=== PATIENT | female | born 1945 | race Two or more races ===

== ENCOUNTER 2023-10-24 11:40 | Inpatient (IN) | payer MEDICARE, OTHER ==
[~2023-10-24] VITALS: Ht 154.9 cm; Wt 65.8 kg
[2023-10-24] MEDS ORDERED: AZIT250T13 PO (15:27)
[2023-10-24] MEDS ORDERED: ASPI-1169 PO (15:27)
[2023-10-24] MEDS ORDERED: POVI1MED BNOSTRILS (15:27)
[2023-10-24] MEDS ORDERED: BENZ-13 PO (15:27)
[2023-10-24] MEDS ORDERED: SODI480S2 TOP (15:27)
[2023-10-24] MEDS ORDERED: ACET-868 PO (15:27)
[2023-10-24] MEDS ORDERED: DOCU-141 PO (15:27)
[2023-10-24] MEDS ORDERED: CLON0.1T PO (15:27)
[2023-10-24] MEDS ORDERED: POLY17PO4 PO (15:27)
[2023-10-24] MEDS ORDERED: BISA10SU11 RC (15:27)
[2023-10-24] MEDS ORDERED: VALS40TA4 PO (15:28)
[2023-10-24] MEDS ORDERED: MULT-447 PO (15:28)
[2023-10-24] MEDS ORDERED: ASCO-352 PO (15:28)
[2023-10-24] MEDS ORDERED: MAGN400O6 PO (15:28)
[2023-10-24] MEDS ORDERED: PANT40TA2 PO (15:28)
[2023-10-24] MEDS ORDERED: NUT.237L31 PO (15:28)
[2023-10-24] MEDS ORDERED: METO25TA3 PO (15:28)
[2023-10-24] MEDS ORDERED: METF-441 PO (15:28)
[2023-10-24] MEDS ORDERED: ESCI10TA PO (15:28)
[2023-10-24] MEDS ORDERED: NA P133E RC (15:28)
[2023-10-24] MEDS ORDERED: METO-295 PO (15:28)
[2023-10-24] MEDS ORDERED: GUAI100S9 PO (15:28)
[2023-10-24] MEDS ORDERED: DEXT37.54 PO (15:28)
[2023-10-24 15:41] VITALS: BP 141/63; TEMP 95.9; O2SAT 92
[2023-10-24] MEDS ORDERED: DEXTROSE 50%-WATER 50 ML DISP.SYRIN IV PRN (17:00)
[2023-10-24] MEDS: BLOOD SUGAR DIAGNOSTIC 1 EACH STRIP IN SCH ×2 (17:02→22:51)
[2023-10-24] MEDS ORDERED: MAG HYDROX/AL HYDROX/SIMETH 30 ML UDC PO PRN (19:00)
[2023-10-24] MEDS ORDERED: BISACODYL SUPP (10 MG) 10 MG/SUPP.RECT SUPP.RECT RC PRN (19:00)
[2023-10-24] MEDS ORDERED: BENZONATATE 100 MG CAPSULE PO PRN (19:00)
[2023-10-24] MEDS ORDERED: DAKINS HALF STRENGTH (0.25%) 480 ML BOTTLE TOP PRN (19:00)
[2023-10-24] MEDS ORDERED: NA PHOS,M-B/NA PHOS,DI-BA 1 EA ENEMA RC PRN (19:00)
[2023-10-24] MEDS ORDERED: ACETAMINOPHEN 325 MG TABLET PO PRN ×2 (19:00)
[2023-10-24] MEDS ORDERED: ONDANSETRON HCL/PF 4 MG/2 ML VIAL IVP PRN (19:00)
[2023-10-24] MEDS ORDERED: ZOLPIDEM TARTRATE 5 MG TABLET PO PRN (19:00)
[2023-10-24] MEDS ORDERED: Z GUARD REMEDY 4 OZ OINT TP PRN (19:00)
[2023-10-24] MEDS ORDERED: GUAIFENESIN 300 MG/15 ML UDC PO PRN (19:00)
[2023-10-24] MEDS ORDERED: POLYETHYLENE GLYCOL 3350 17 GM POWD.PACK PO PRN (19:00)
[2023-10-24] MEDS ORDERED: MAGNESIUM HYDROXIDE 30 ML UDC PO PRN ×2 (19:00)
[2023-10-24 20:00] VITALS: BP 124/87; TEMP 97.6; O2SAT 91
[2023-10-24 20:01] LABS: BASOPHILS # (AUTO) 0.1 K/uL (0.0-0.2); BASOPHILS % (AUTO) 0.4 % (0.0-2.0); EOSINOPHILS # (AUTO) 0.3 K/uL (0.0-0.7); EOSINOPHILS % (AUTO) 2.1 % (0.0-6.0); HEMATOCRIT 31 % (33-45); HEMOGLOBIN 9.4 g/dL (11.5-14.8); LYMPHOCYTES # (AUTO) 1.5 K/uL (0.8-4.8); LYMPHOCYTES % (AUTO) 9.5 % (20.0-44.0); MEAN CORPUSCULAR HEMOGLOBIN 25 PG (26.0-33.0); MEAN CORPUSCULAR HGB CONC 31 g/dl (31.0-36.0); MEAN CORPUSCULAR VOLUME 83 fL (82-100); MONOCYTES # (AUTO) 0.5 K/uL (0.1-1.30); MONOCYTES % (AUTO) 3.4 % (2.0-12.0); NEUTROPHILS % (AUTO) 84.6 % (43.0-81.0); PLATELET COUNT (AUTO) 444 K/uL (150-450); RED BLOOD CELL COUNT(AUTO) 3.72 MIL/uL (4.0-5.2); RED CELL DISTRIBUTION WIDTH 15.3 % (11.5-15.0); WHITE BLOOD COUNT (AUTO) 15.4 K/uL (4.3-11.0)
[2023-10-24 20:16] LABS: AMYLASE 225 U/L (25-115); CALCIUM, SERUM 8.9 mg/dL (8.5-10.1); CARBON DIOXIDE 24 mmol/L (21-32); CHLORIDE 118 mmol/L (98-107); CREATININE 1.9 mg/dL (0.6-1.3); GLUCOSE 208 mg/dL (74-106); IRON, SERUM 13 ug/dl (50-175); LIPASE 41 U/L (16-77); MAGNESIUM 2.5 mg/dL (1.8-2.4); PHOSPHORUS 2.8 mg/dL (2.5-4.9); POTASSIUM 3.7 mmol/L (3.5-5.1); SODIUM SERUM 153 mmol/L (136-145); TOTAL IRON BINDING CAPACITY 170 ug/dl (250-450); UREA NITROGEN, BLOOD 56 mg/dL (7-18)
[2023-10-24 20:20] LABS: LACTIC ACID 0.8 mmol/L (0.4-2.0)
[2023-10-24 20:30] LABS: CHOLESTEROL 129 mg/dL (<200); HDL CHOLESTEROL 39 mg/dL (40-60); LDL 72 mg/dL (0-99); TRIGLYCERIDES 109 mg/dL (30-150)
[2023-10-24 20:31] LABS: THYROID STIMULATING HORMONE 0.419 uIU/mL (0.358-3.74)
[2023-10-24] MEDS: CEFTRIAXONE 2 G in IV D5W 100 ML IV SCH (20:59)
[2023-10-24] MEDS: IV NS 0.9% 1,000 ML IV PRN (20:59)
[2023-10-24] MEDS: *INSULIN REGULAR(HUMULIN R)HUM 100 UNIT/ML VIAL SQ PRN (22:54)
[2023-10-25] VITALS: BP 126/63; TEMP 97.6; O2SAT 100
[2023-10-25] MEDS: DAKINS HALF STRENGTH (0.25%) 480 ML BOTTLE TOP SCH ×2 (02:21→09:42)
[2023-10-25 04:00] VITALS: BP 146/79; TEMP 97.9; O2SAT 100
[2023-10-25 07:29] LABS: APPEARANCE,URINE TURBID (CLEAR); BILIRUBIN,URINE NEGATIVE (NEGATIVE); BLOOD, URINE 2+ Ery/uL (NEGATIVE); COLOR,URINE ORANGE (YELLOW); KETONES,URINE TRACE mg/dL (NEGATIVE); LEUKOCYTE ESTERASE ,URINE 3+ (NEGATIVE); NITRITE, URINE POSITIVE (NEGATIVE); PH,URINE 5.5 (5.0-8.0); PROTEIN,URINE 1+ mg/dl (NEGATIVE); UGLUCOSE NEGATIVE (NEGATIVE); UROBILINOGEN,URINE 0.2 EU/dL (0.2)
[2023-10-25 07:56] LABS: ADD URINE CULTURE YES; BACTERIA,URINE Moderate /HPF (None Seen); SQUAMOUS EPITHELIAL CELL,UR Rare /HPF (None Seen); WBC,URINE 21-50 /HPF (0-3)
[2023-10-25 07:58] LABS: BASOPHILS # (AUTO) 0.1 K/uL (0.0-0.2); BASOPHILS % (AUTO) 0.5 % (0.0-2.0); CALCIUM, SERUM 8.3 mg/dL (8.5-10.1); CARBON DIOXIDE 21 mmol/L (21-32); CHLORIDE 118 mmol/L (98-107); CREATININE 1.8 mg/dL (0.6-1.3); EOSINOPHILS # (AUTO) 0.6 K/uL (0.0-0.7); EOSINOPHILS % (AUTO) 3.3 % (0.0-6.0); GLUCOSE 232 mg/dL (74-106); HEMATOCRIT 34 % (33-45); HEMOGLOBIN 10.6 g/dL (11.5-14.8); LYMPHOCYTES # (AUTO) 1.8 K/uL (0.8-4.8); LYMPHOCYTES % (AUTO) 10.2 % (20.0-44.0); MAGNESIUM 2.5 mg/dL (1.8-2.4); MEAN CORPUSCULAR HEMOGLOBIN 26 PG (26.0-33.0); MEAN CORPUSCULAR HGB CONC 31 g/dl (31.0-36.0); MEAN CORPUSCULAR VOLUME 83 fL (82-100); MONOCYTES # (AUTO) 0.7 K/uL (0.1-1.30); MONOCYTES % (AUTO) 3.7 % (2.0-12.0); NEUTROPHILS # (AUTO) 14.6 K/uL (1.8-8.9); NEUTROPHILS % (AUTO) 82.3 % (43.0-81.0); POTASSIUM 4.2 mmol/L (3.5-5.1); RED BLOOD CELL COUNT(AUTO) 4.08 MIL/uL (4.0-5.2); RED CELL DISTRIBUTION WIDTH 15.1 % (11.5-15.0); SODIUM SERUM 151 mmol/L (136-145); UREA NITROGEN, BLOOD 49 mg/dL (7-18); WHITE BLOOD COUNT (AUTO) 17.7 K/uL (4.3-11.0)
[2023-10-25 08:00] VITALS: BP_SYST 127; BP_SYST 144; BP_DIAS 62; BP_DIAS 83; TEMP 98; TEMP 98.2; O2SAT 100
[2023-10-25 08:15] LABS: PLATELET COUNT (AUTO) 487 K/uL (150-450)
[2023-10-25] MEDS ORDERED: GLUCERNA 1.5 1,000 ML BOTTLE PEG SCH (09:00)
[2023-10-25] MEDS ORDERED: POVIDONE IODINE BNOSTRILS SCH (09:00)
[2023-10-25] MEDS: MULTIVIT W/MINERALS 1 TAB TABLET PO SCH (09:37)
[2023-10-25] MEDS: DOCUSATE SODIUM 100 MG CAPSULE PO SCH ×2 (09:39→18:06)
[2023-10-25] MEDS: AZITHROMYCIN 250 MG TABLET PO SCH (09:39)
[2023-10-25] MEDS: LOSARTAN POTASSIUM 25 MG TABLET PO SCH (09:39)
[2023-10-25] MEDS: METOCLOPRAMIDE HCL 10 MG TABLET PO SCH ×2 (09:40→18:06)
[2023-10-25] MEDS: ASCORBIC ACID 500 MG TABLET PO SCH (09:41)
[2023-10-25] MEDS: ASPIRIN 81 MG TAB.CHEW PO SCH (09:41)
[2023-10-25] MEDS: METOPROLOL SUCCINATE 25 MG TAB.SR.24H PO SCH (09:41)
[2023-10-25] MEDS: ESCITALOPRAM OXALATE (10 MG) 10 MG TABLET PO SCH (09:41)
[2023-10-25] MEDS: BLOOD SUGAR DIAGNOSTIC 1 EACH STRIP IN SCH ×4 (09:42→22:08)
[2023-10-25] MEDS: PANTOPRAZOLE 40 MG TABLET.DR PO SCH (09:47)
[2023-10-25] MEDS: INSULIN REGULAR, HUMAN 100 UNIT/ML 3 ML VIAL SQ PRN ×2 (09:53→12:27)
[2023-10-25 11:42] LABS: ANISOCYTOSIS 1+; BAND % (MANUAL) 2 % (0.0-5.0); BASOPHILS % (MANUAL) 0 % (0.0-2.0); EOSINOPHILS % (MANUAL) 0 % (0-4); LYMPHOCYTES % (MANUAL) 14 % (16-48); MONOCYTES % (MANUAL) 4 % (0-11.0); NEUTROPHILS % (MANUAL) 80 (42-76); PLATELET ESTIMATE ADEQUATE; STOMATOCYTES 1+
[2023-10-25 12:00] VITALS: BP 127/62; TEMP 98; O2SAT 100
[2023-10-25] MEDS: GLUCERNA SHAKE 237 ML CAN PO SCH ×2 (12:25→17:00)
[2023-10-25] MEDS: IV NS 0.9% 1,000 ML IV PRN (12:31)
[2023-10-25 16:00] VITALS: BP 102/50; TEMP 98; O2SAT 100
[2023-10-25 20:00] VITALS: BP 142/68; TEMP 98.2; O2SAT 98
[2023-10-25] MEDS: CEFTRIAXONE 2 G in IV D5W 100 ML IV SCH (21:32)
[2023-10-25] MEDS: INSULIN GLARGINE, 100 UNIT/ML CARTRIDGE SQ SCH (22:11)
[2023-10-25] MEDS: *INSULIN REGULAR(HUMULIN R)HUM 100 UNIT/ML VIAL SQ PRN (22:13)
[2023-10-26] VITALS: BP 105/60; TEMP 98.2; O2SAT 98
[2023-10-26 04:00] VITALS: BP 109/50; TEMP 98.2; O2SAT 100
[2023-10-26] MEDS: IV NS 0.9% 1,000 ML IV PRN ×2 (04:18→17:10)
[2023-10-26 08:00] VITALS: BP 118/62; TEMP 96.1; O2SAT 99
[2023-10-26] MEDS: GLUCERNA SHAKE 237 ML CAN PO SCH ×3 (08:00→16:13)
[2023-10-26] MEDS: INSULIN REGULAR, HUMAN 100 UNIT/ML 3 ML VIAL SQ PRN ×2 (08:22→12:15)
[2023-10-26] MEDS: BLOOD SUGAR DIAGNOSTIC 1 EACH STRIP IN SCH ×4 (08:23→22:08)
[2023-10-26] MEDS: PANTOPRAZOLE 40 MG TABLET.DR PO SCH (08:23)
[2023-10-26] MEDS: DOCUSATE SODIUM 100 MG CAPSULE PO SCH ×2 (08:24→16:18)
[2023-10-26] MEDS: AZITHROMYCIN 250 MG TABLET PO SCH (08:24)
[2023-10-26] MEDS: ASPIRIN 81 MG TAB.CHEW PO SCH (08:24)
[2023-10-26] MEDS: MULTIVIT W/MINERALS 1 TAB TABLET PO SCH (08:24)
[2023-10-26] MEDS: METOPROLOL SUCCINATE 25 MG TAB.SR.24H PO SCH (08:25)
[2023-10-26] MEDS: METOCLOPRAMIDE HCL 10 MG TABLET PO SCH ×2 (08:26→16:18)
[2023-10-26] MEDS: ESCITALOPRAM OXALATE (10 MG) 10 MG TABLET PO SCH (08:27)
[2023-10-26] MEDS: LOSARTAN POTASSIUM 25 MG TABLET PO SCH (08:27)
[2023-10-26] MEDS: ASCORBIC ACID 500 MG TABLET PO SCH (08:27)
[2023-10-26] MEDS: DAKINS HALF STRENGTH (0.25%) 480 ML BOTTLE TOP SCH (08:28)
[2023-10-26 11:55] LABS: CALCIUM, SERUM 7.5 mg/dL (8.5-10.1); CARBON DIOXIDE 24 mmol/L (21-32); CHLORIDE 109 mmol/L (98-107); CREATININE 1.5 mg/dL (0.6-1.3); GLUCOSE 203 mg/dL (74-106); MAGNESIUM 1.8 mg/dL (1.8-2.4); POTASSIUM 3.5 mmol/L (3.5-5.1); SODIUM SERUM 142 mmol/L (136-145); UREA NITROGEN, BLOOD 31 mg/dL (7-18)
[2023-10-26 11:59] LABS: BASOPHILS % (AUTO) 0.3 % (0.0-2.0); EOSINOPHILS # (AUTO) 0.3 K/uL (0.0-0.7); EOSINOPHILS % (AUTO) 3.2 % (0.0-6.0); HEMATOCRIT 29 % (33-45); LYMPHOCYTES # (AUTO) 1.1 K/uL (0.8-4.8); MEAN CORPUSCULAR HEMOGLOBIN 26 PG (26.0-33.0); MEAN CORPUSCULAR HGB CONC 32 g/dl (31.0-36.0); MEAN CORPUSCULAR VOLUME 82 fL (82-100); MONOCYTES # (AUTO) 0.3 K/uL (0.1-1.30); MONOCYTES % (AUTO) 3.3 % (2.0-12.0); NEUTROPHILS # (AUTO) 8.2 K/uL (1.8-8.9); NEUTROPHILS % (AUTO) 82.2 % (43.0-81.0); PLATELET COUNT (AUTO) 355 K/uL (150-450); RED CELL DISTRIBUTION WIDTH 15.1 % (11.5-15.0); WHITE BLOOD COUNT (AUTO) 9.9 K/uL (4.3-11.0)
[2023-10-26 12:00] VITALS: BP 119/68; TEMP 97.5; O2SAT 99
[2023-10-26 16:00] VITALS: BP 145/72; TEMP 97.5; O2SAT 99
[2023-10-26] MEDS ORDERED: K PHOS NEUTRAL 250 MG TABLET PO ONE (16:00)
[2023-10-26] MEDS: CEFTRIAXONE 2 G in IV D5W 100 ML IV SCH (19:28)
[2023-10-26 20:00] VITALS: BP 113/78; TEMP 97.3; O2SAT 100
[2023-10-26] MEDS: INSULIN GLARGINE, 100 UNIT/ML CARTRIDGE SQ SCH (22:10)
[2023-10-27] VITALS: BP 125/56; TEMP 98.3; O2SAT 96
[2023-10-27 04:00] VITALS: BP 99/61; TEMP 97.7; O2SAT 100
[2023-10-27] MEDS: BLOOD SUGAR DIAGNOSTIC 1 EACH STRIP IN SCH ×4 (05:43→22:16)
[2023-10-27] MEDS: PANTOPRAZOLE 40 MG TABLET.DR PO SCH (06:00)
[2023-10-27] MEDS: IV NS 0.9% 1,000 ML IV PRN ×2 (06:18→18:28)
[2023-10-27 08:00] VITALS: BP 134/64; TEMP 98.4; O2SAT 100
[2023-10-27] MEDS: GLUCERNA SHAKE 237 ML CAN PO SCH ×3 (08:07→17:05)
[2023-10-27 08:10] LABS: BASOPHILS % (AUTO) 0.4 % (0.0-2.0); EOSINOPHILS # (AUTO) 0.3 K/uL (0.0-0.7); EOSINOPHILS % (AUTO) 3.8 % (0.0-6.0); HEMATOCRIT 28 % (33-45); HEMOGLOBIN 8.7 g/dL (11.5-14.8); LYMPHOCYTES # (AUTO) 1.3 K/uL (0.8-4.8); MEAN CORPUSCULAR HEMOGLOBIN 26 PG (26.0-33.0); MEAN CORPUSCULAR HGB CONC 31 g/dl (31.0-36.0); MEAN CORPUSCULAR VOLUME 84 fL (82-100); MONOCYTES # (AUTO) 0.3 K/uL (0.1-1.30); MONOCYTES % (AUTO) 4.4 % (2.0-12.0); NEUTROPHILS # (AUTO) 5.8 K/uL (1.8-8.9); NEUTROPHILS % (AUTO) 74.4 % (43.0-81.0); PLATELET COUNT (AUTO) 228 K/uL (150-450); RED BLOOD CELL COUNT(AUTO) 3.36 MIL/uL (4.0-5.2); RED CELL DISTRIBUTION WIDTH 15.5 % (11.5-15.0); WHITE BLOOD COUNT (AUTO) 7.8 K/uL (4.3-11.0)
[2023-10-27 08:33] LABS: CALCIUM, SERUM 7.6 mg/dL (8.5-10.1); CREATININE 1.2 mg/dL (0.6-1.3); MAGNESIUM 1.8 mg/dL (1.8-2.4); PHOSPHORUS 2.8 mg/dL (2.5-4.9); POTASSIUM 3.3 mmol/L (3.5-5.1)
[2023-10-27] MEDS: LOSARTAN POTASSIUM 25 MG TABLET PO SCH (08:58)
[2023-10-27] MEDS: AZITHROMYCIN 250 MG TABLET PO SCH (08:58)
[2023-10-27] MEDS: MULTIVIT W/MINERALS 1 TAB TABLET PO SCH (08:58)
[2023-10-27] MEDS: ESCITALOPRAM OXALATE (10 MG) 10 MG TABLET PO SCH (08:58)
[2023-10-27] MEDS: DOCUSATE SODIUM 100 MG CAPSULE PO SCH ×2 (08:58→17:00)
[2023-10-27] MEDS: METOCLOPRAMIDE HCL 10 MG TABLET PO SCH ×2 (08:58→17:00)
[2023-10-27] MEDS: ASPIRIN 81 MG TAB.CHEW PO SCH (08:58)
[2023-10-27] MEDS: ASCORBIC ACID 500 MG TABLET PO SCH (08:59)
[2023-10-27] MEDS: METOPROLOL SUCCINATE 25 MG TAB.SR.24H PO SCH (08:59)
[2023-10-27] MEDS: DAKINS HALF STRENGTH (0.25%) 480 ML BOTTLE TOP SCH (08:59)
[2023-10-27] MEDS ORDERED: POTASSIUM CHLORIDE 20 MEQ TAB.PRT.SR PO ONE (11:00)
[2023-10-27] MEDS ORDERED: POTASSIUM CHLORIDE 20 MEQ POWDER PACKET PO ONE (11:00)
[2023-10-27 12:00] VITALS: BP 127/74; TEMP 98.2; O2SAT 100
[2023-10-27] MEDS: INSULIN REGULAR, HUMAN 100 UNIT/ML 3 ML VIAL SQ PRN (12:05)
[2023-10-27] MEDS: FERROUS SULFATE (325 MG) 325 MG/TAB TABLET PO SCH ×2 (15:17→17:13)
[2023-10-27] MEDS: THIAMINE HCL 100 MG TABLET PO SCH (15:17)
[2023-10-27] MEDS: FOLIC ACID 1 MG TABLET PO SCH (15:17)
[2023-10-27 16:00] VITALS: BP 138/62; TEMP 97.2; O2SAT 100
[2023-10-27 20:00] VITALS: BP 139/74; TEMP 98.1; O2SAT 100
[2023-10-27] MEDS: CEFTRIAXONE 2 G in IV D5W 100 ML IV SCH (20:37)
[2023-10-27] MEDS: INSULIN GLARGINE, 100 UNIT/ML CARTRIDGE SQ SCH (22:00)
[2023-10-28] VITALS: BP 147/69; TEMP 98; O2SAT 98
[2023-10-28 04:00] VITALS: BP 139/65; TEMP 98.2; O2SAT 98
[2023-10-28 07:14] LABS: BASOPHILS % (AUTO) 0.2 % (0.0-2.0); EOSINOPHILS # (AUTO) 0.3 K/uL (0.0-0.7); EOSINOPHILS % (AUTO) 3.9 % (0.0-6.0); HEMATOCRIT 27 % (33-45); HEMOGLOBIN 8.6 g/dL (11.5-14.8); LYMPHOCYTES # (AUTO) 1.5 K/uL (0.8-4.8); LYMPHOCYTES % (AUTO) 17.4 % (20.0-44.0); MEAN CORPUSCULAR HEMOGLOBIN 26 PG (26.0-33.0); MEAN CORPUSCULAR HGB CONC 32 g/dl (31.0-36.0); MEAN CORPUSCULAR VOLUME 82 fL (82-100); MONOCYTES # (AUTO) 0.4 K/uL (0.1-1.30); MONOCYTES % (AUTO) 4.3 % (2.0-12.0); NEUTROPHILS # (AUTO) 6.3 K/uL (1.8-8.9); NEUTROPHILS % (AUTO) 74.2 % (43.0-81.0); PLATELET COUNT (AUTO) 346 K/uL (150-450); RED BLOOD CELL COUNT(AUTO) 3.33 MIL/uL (4.0-5.2); RED CELL DISTRIBUTION WIDTH 15.4 % (11.5-15.0); WHITE BLOOD COUNT (AUTO) 8.4 K/uL (4.3-11.0)
[2023-10-28 07:33] LABS: CALCIUM, SERUM 7.7 mg/dL (8.5-10.1); CREATININE 1.1 mg/dL (0.6-1.3); MAGNESIUM 1.8 mg/dL (1.8-2.4); POTASSIUM 3.5 mmol/L (3.5-5.1)
[2023-10-28 08:00] VITALS: BP 153/64; TEMP 97.4; O2SAT 98
[2023-10-28 08:29] LABS: PHOSPHORUS 3.1 mg/dL (2.5-4.9)
[2023-10-28] MEDS: METOCLOPRAMIDE HCL 10 MG TABLET PO SCH (08:47)
[2023-10-28] MEDS: ASPIRIN 81 MG TAB.CHEW PO SCH (08:47)
[2023-10-28] MEDS: THIAMINE HCL 100 MG TABLET PO SCH (08:47)
[2023-10-28] MEDS: LOSARTAN POTASSIUM 25 MG TABLET PO SCH (08:49)
[2023-10-28] MEDS: FERROUS SULFATE (325 MG) 325 MG/TAB TABLET PO SCH (08:49)
[2023-10-28] MEDS: MULTIVIT W/MINERALS 1 TAB TABLET PO SCH (08:49)
[2023-10-28] MEDS: ESCITALOPRAM OXALATE (10 MG) 10 MG TABLET PO SCH (08:49)
[2023-10-28] MEDS: FOLIC ACID 1 MG TABLET PO SCH (08:49)
[2023-10-28] MEDS: ASCORBIC ACID 500 MG TABLET PO SCH (08:49)
[2023-10-28] MEDS: PANTOPRAZOLE 40 MG TABLET.DR PO SCH (08:50)
[2023-10-28] MEDS: GLUCERNA SHAKE 237 ML CAN PO SCH ×2 (08:50→13:13)
[2023-10-28] MEDS: DAKINS HALF STRENGTH (0.25%) 480 ML BOTTLE TOP SCH (08:51)
[2023-10-28] MEDS: DOCUSATE SODIUM 100 MG CAPSULE PO SCH (08:51)
[2023-10-28] MEDS: BLOOD SUGAR DIAGNOSTIC 1 EACH STRIP IN SCH ×2 (08:52→11:53)
[2023-10-28] MEDS: IV NS 0.9% 1,000 ML IV PRN (08:59)
[2023-10-28] MEDS: METOPROLOL SUCCINATE 25 MG TAB.SR.24H PO SCH (09:00)
[2023-10-28] MEDS: INSULIN REGULAR, HUMAN 100 UNIT/ML 3 ML VIAL SQ PRN (11:52)
[2023-10-28 12:00] VITALS: BP 155/89; TEMP 98.6; O2SAT 98
[2023-10-28 16:00] VITALS: BP 116/68; TEMP 98.5; O2SAT 98
== END 2023-10-28 16:00 | DRG 871 ==
LOC: TELE1 14:34
PROVIDERS: ADMIT Internal Medicine; ATTEND Internal Medicine
DX: A41.9 Sepsis, unspecified organism (principal); G93.41 Metabolic encephalopathy; N17.0 Acute kidney failure with tubular necrosis; J18.1 Lobar pneumonia, unspecified organism; J44.0 Chronic obstructive pulmonary disease with (acute) lower respiratory infection; F03.93 Unspecified dementia, unspecified severity, with mood disturbance; F03.94 Unspecified dementia, unspecified severity, with anxiety; N39.0 Urinary tract infection, site not specified; K86.1 Other chronic pancreatitis; K21.9 Gastro-esophageal reflux disease without esophagitis; Z66 Do not resuscitate; Z20.822 Contact with and (suspected) exposure to COVID-19; I10 Essential (primary) hypertension; Z90.49 Acquired absence of other specified parts of digestive tract; F41.9 Anxiety disorder, unspecified; Z85.038 Personal history of other malignant neoplasm of large intestine; F32.A Depression, unspecified; Z79.84 Long term (current) use of oral hypoglycemic drugs; Z79.899 Other long term (current) drug therapy; Z79.82 Long term (current) use of aspirin; Z88.2 Allergy status to sulfonamides; Z88.8 Allergy status to other drugs, medicaments and biological substances; D50.9 Iron deficiency anemia, unspecified; E11.65 Type 2 diabetes mellitus with hyperglycemia; R09.02 Hypoxemia; Z79.4 Long term (current) use of insulin; Z87.891 Personal history of nicotine dependence; E11.649 Type 2 diabetes mellitus with hypoglycemia without coma
CPT/HCPCS: 36415; 76856-TC; 80048-TC; 80061-TC; 81001; 82150-TC; 82962-TC; 83540-TC; 83605-TC; 83690-TC; 83735-TC; 84100-TC; 84443-TC; 85025-TC; 87040-TC; 87081-TC; 87086-TC; 92526; 92611-TC; A4223; A6403; G0378; J0696; J1815; J7030; J7060; J7070; J8597